=== PATIENT | male | born 1980 | race African-American/Black ===

== ENCOUNTER 2016-09-04 02:20 | Emergency (ER) | payer OTHER ==
[~2016-09-04] VITALS: Ht 185.4 cm; Wt 77.6 kg
[~2016-09-04 02:20] MED LIST: LEVETIRACETAM500 MG PO; MOTRIN600 MG PO; NAPROSYN500 MG PO; OXCARBAZEPINE150 MG PO; PREDNISONE10 MG PO; ZOFRAN ODT4 MG PO
[2016-09-04 03:10] LABS: HEMATOCRIT 40.1 % (38.0-50.0); MCH 31.7 PG (29.0-34.0); MCHC 35.2 G/DL (30.0-36.0); MCV 90.1 FL (86-99); MEAN PLAT.VOLUME 10.1 uM^3 (9.0-12.4); PLATELET COUNT 213 K/uL (156-360); RBC DIS.WIDTH-CV 12.3 % (11.8-14.6); RBC DIS.WIDTH-SD 39.8 % (39-53); RED BLOOD COUNT 4.45 M/uL (4.00-5.50); WHITE BLOOD COUNT 11.7 K/uL (4.1-10.2)
[2016-09-04 03:21] LABS: CHLORIDE 109 mEq/L (99-109); POTASSIUM 4.1 mEq/L (3.7-5.4); SODIUM 141 mEq/L (136-147)
[2016-09-04 03:23] LABS: GLUCOSE 141 mg/dL (70-99)
[2016-09-04 03:24] LABS: ANION GAP 13 MEQ/L (2-14)
[2016-09-04 03:25] LABS: TOTAL BILIRUBIN 0.7 mg/dL (0.0-1.0)
[2016-09-04 03:26] LABS: ALKALINE PHOSPHATASE 48 IU/L (3-129); SERUM ETHYL ALCOHOL < 10 mg/dL
[2016-09-04 03:27] LABS: GFR ESTIMATE (CALCULATED) > 59 mL/min/
[2016-09-04 03:28] LABS: UREA NITROGEN (BUN) 14 mg/dL (9-23)
[2016-09-04 03:30] LABS: CREATINE KINASE 229 IU/L (1-294)
[2016-09-04] MEDS ORDERED: KEPPRA500 MG PO (05:34)
[2016-09-04 13:48] VITALS: BP 125/69
== END 2016-09-04 13:30 | disposition home or self-care (01) ==
LOC: EME 02:20
PROVIDERS: Emergency Medicine
DX: G40.909 Epilepsy, unspecified, not intractable, without status epilepticus (principal); Z91.14 Patient's other noncompliance with medication regimen
CPT/HCPCS: 80053; 81003; 82550; 85027; 99281; 99284; G0480; J1953; J2060; J7030; J7050

== ENCOUNTER 2017-04-23 10:17 | Inpatient (IN) | payer SELFPAY ==
[~2017-04-23] VITALS: Ht 188 cm; Wt 83.8 kg
[~2017-04-23 10:17] MED LIST changes: +KEPPRA500 MG PO
[2017-04-23 11:21] LABS: EOSINOPHIL (%) 1.1 % (0-5); EOSINOPHIL COUNT 0.1 K/uL (0-0.3); HEMATOCRIT 40.3 % (38.0-50.0); IMMATURE GRANULOCYTE (%) 0.3 % (0.0-0.7); INSTRUMENT ABS NEUTROPHIL CT 6.4 K/uL; LYMPHOCYTE COUNT 0.6 K/uL (1.0-2.8); MCH 31.3 PG (29.0-34.0); MCHC 33.5 G/DL (30.0-36.0); MCV 93.3 FL (86-99); MEAN PLAT.VOLUME 10.1 uM^3 (9.0-12.4); MONOCYTE (%) 4.2 % (3-12); MONOCYTE COUNT 0.3 K/uL (0-0.8); NEUTROPHIL (%) 86.3 % (45-76); NEUTROPHIL COUNT 6.4 K/uL (1.8-6.4); PLATELET COUNT 179 K/uL (156-360); RBC DIS.WIDTH-CV 12.1 % (11.8-14.6); RED BLOOD COUNT 4.32 M/uL (4.00-5.50); WHITE BLOOD COUNT 7.4 K/uL (4.1-10.2)
[2017-04-23 11:29] LABS: CHLORIDE 112 mEq/L (99-109); POTASSIUM 4.9 mEq/L (3.7-5.4); SODIUM 143 mEq/L (136-147)
[2017-04-23 11:31] LABS: GLUCOSE 66 mg/dL (70-99)
[2017-04-23 11:33] LABS: ANION GAP 9 MEQ/L (2-14); TOTAL BILIRUBIN 0.3 mg/dL (0.0-1.0)
[2017-04-23 11:35] LABS: ALKALINE PHOSPHATASE 51 IU/L (3-129); GFR ESTIMATE (CALCULATED) > 59 mL/min/
[2017-04-23 11:36] LABS: UREA NITROGEN (BUN) 10 mg/dL (9-23)
[2017-04-23] MEDS ORDERED: OXCARBAZEPINE300 MG PO (13:07)
[2017-04-23 15:48] LABS: POINT-OF-CARE METER ID UU13113702
[2017-04-23 19:18] LABS: EOSINOPHIL (%) 0 % (0-5); HEMATOCRIT 39.6 % (38.0-50.0); IMMATURE GRANULOCYTE (%) 0.2 % (0.0-0.7); INSTRUMENT ABS NEUTROPHIL CT 10.2 K/uL; MCH 31.2 PG (29.0-34.0); MCHC 33.6 G/DL (30.0-36.0); MEAN PLAT.VOLUME 9.7 uM^3 (9.0-12.4); MONOCYTE (%) 6.5 % (3-12); MONOCYTE COUNT 0.8 K/uL (0-0.8); NEUTROPHIL (%) 84.7 % (45-76); NEUTROPHIL COUNT 10.2 K/uL (1.8-6.4); PLATELET COUNT 190 K/uL (156-360); RBC DIS.WIDTH-CV 12.2 % (11.8-14.6); RBC DIS.WIDTH-SD 42.3 % (39-53); RED BLOOD COUNT 4.26 M/uL (4.00-5.50)
[2017-04-23 19:32] VITALS: BP 135/71
[2017-04-23 20:49] LABS: INTER. NORMALIZED RATIO 1.1
[2017-04-23 23:22] LABS: HEMATOCRIT 37.4 % (38.0-50.0); MCV 92.3 FL (86-99)
[2017-04-23 23:25] VITALS: BP 109/55
[2017-04-24 06:42] LABS: HEMATOCRIT 36.4 % (38.0-50.0); MCH 32.1 PG (29.0-34.0); MCHC 34.6 G/DL (30.0-36.0); MCV 92.9 FL (86-99); MEAN PLAT.VOLUME 10.3 uM^3 (9.0-12.4); PLATELET COUNT 179 K/uL (156-360); RBC DIS.WIDTH-CV 12.3 % (11.8-14.6); RBC DIS.WIDTH-SD 42.1 % (39-53); RED BLOOD COUNT 3.92 M/uL (4.00-5.50); WHITE BLOOD COUNT 8.1 K/uL (4.1-10.2)
[2017-04-24 08:22] VITALS: BP 116/65
[2017-04-24] MEDS ORDERED: OXCARBAZEPINE300 MG PO (11:03)
== END 2017-04-24 11:48 | disposition home or self-care (01) | DRG 101 ==
LOC: EME 10:17 → EDOF 15:05 → ENRESERV 15:06 → 3EAST 16:24
PROVIDERS: Emergency Medicine; Hospitalist; Internal Medicine
DX: G40.409 Other generalized epilepsy and epileptic syndromes, not intractable, without status epilepticus (principal); F17.200 Nicotine dependence, unspecified, uncomplicated; K92.0 Hematemesis; F12.90 Cannabis use, unspecified, uncomplicated; R53.1 Weakness; E16.2 Hypoglycemia, unspecified; R11.0 Nausea; Z82.0 Family history of epilepsy and other diseases of the nervous system; Z79.899 Other long term (current) drug therapy; Z88.0 Allergy status to penicillin
CPT/HCPCS: 70450; 80053; 82948; 85014; 85018; 85025; 85025 91; 85027; 85610; 85730; 86850; 86900; 86901; 94799; 99281; 99285; C9113; J1953; J2060; J2270; J2765; J7030; J7050

== ENCOUNTER 2017-06-27 10:16 | Inpatient (IN) | payer BC ==
[~2017-06-27] VITALS: Ht 182.9 cm; Wt 84.8 kg
[~2017-06-27 10:16] MED LIST changes: +OXCARBAZEPINE300 MG PO
[2017-06-27 15:55] LABS: POINT-OF-CARE METER ID UU14100415
[2017-06-27 16:04] LABS: CHLORIDE 109 mEq/L (99-109); POTASSIUM 4.2 mEq/L (3.7-5.4); SODIUM 140 mEq/L (136-147)
[2017-06-27 16:05] LABS: GLUCOSE 85 mg/dL (70-99)
[2017-06-27 16:07] LABS: ANION GAP 10 MEQ/L (2-14)
[2017-06-27 16:09] LABS: GFR ESTIMATE (CALCULATED) > 59 mL/min/ (58.99-99999)
[2017-06-27 16:10] LABS: UREA NITROGEN (BUN) 12 mg/dL (9-23)
[2017-06-27] MEDS ORDERED: APTIOM600 MG PO (16:52)
[2017-06-27] MEDS ORDERED: APTIOM400 MG PO (16:52)
[2017-06-27 18:30] VITALS: BP 130/65
== END 2017-06-27 18:20 | disposition left against medical advice (07) | DRG 101 ==
LOC: EME 10:16 → EDOF 16:25 → ENRESERV 17:52 → EDOF 18:20 → ENRESERV 18:47 → CANRESERV 18:47
PROVIDERS: Physician Assistant
DX: G40.89 Other seizures (principal); W22.09XA Striking against other stationary object, initial encounter; F17.200 Nicotine dependence, unspecified, uncomplicated; Z79.899 Other long term (current) drug therapy; Z88.0 Allergy status to penicillin
CPT/HCPCS: 70450; 80048; 80156; 82948; J2060

== ENCOUNTER 2018-02-03 12:58 | Inpatient (IN) | payer OTHER ==
[~2018-02-03] VITALS: Ht 182.9 cm; Wt 85.5 kg
[~2018-02-03 12:58] MED LIST changes: +APTIOM400 MG PO; +APTIOM600 MG PO
[2018-02-03 13:46] LABS: HEMATOCRIT 44.4 % (38.0-50.0); HEMOGLOBIN 15.9 G/DL (12.5-16.6); MCH 32.7 PG (29.0-34.0); MCHC 35.8 G/DL (30.0-36.0); MCV 91.4 FL (86-99); PLATELET COUNT 176 K/uL (156-360); RBC DIS.WIDTH-CV 11.7 % (11.8-14.6); RBC DIS.WIDTH-SD 39.3 % (39-53); RED BLOOD COUNT 4.86 M/uL (4.00-5.50); WHITE BLOOD COUNT 11.9 K/uL (4.1-10.2)
[2018-02-03 13:49] LABS: APPEARANCE CLEAR ((CLEAR)); BILIRUBIN NEGATIVE; BLOOD MODERATE; COLOR STRAW ((YELLOW)); GLUCOSE (STRIP) >=500; KETONES NEGATIVE; LEUKOCYTES NEGATIVE; NITRITE NEGATIVE; PROTEIN (STRIP) 100; SPECIFIC GRAVITY 1.012 (1.000-1.030); UROBILINOGEN 0.2 MG/DL (0.2-1.0)
[2018-02-03 13:55] LABS: CHLORIDE 108 mEq/L (99-109); POTASSIUM 4.5 mEq/L (3.7-5.4); SODIUM 138 mEq/L (136-147)
[2018-02-03 13:57] LABS: GLUCOSE 206 mg/dL (70-99)
[2018-02-03 14:01] LABS: CREATININE 1.2 mg/dL (0.6-1.3); GFR ESTIMATE (CALCULATED) > 59 mL/min/ (58.99-99999); UREA NITROGEN (BUN) 11 mg/dL (9-23)
[2018-02-03 14:04] LABS: BACTERIA NONE SEEN /HPF; EPITHELIAL CELLS NONE SEEN /HPF; HYALINE CASTS 0-5 /LPF; MUCUS TRACE /LPF; RED BLOOD CELLS 0-5 /HPF (0-5); UCUL ADDED? NO; WHITE BLOOD CELLS 0-5 /HPF (0-5)
[2018-02-03 14:59] LABS: VALPROIC ACID (DEPAKOTE) < 10.0 MCG/ML (50-100)
[2018-02-03] MEDS ORDERED: DEPAKOTE500 MG PO (16:15)
[2018-02-03 20:27] VITALS: BP 107/68
[2018-02-03 23:47] VITALS: BP 122/63
[2018-02-04 03:31] VITALS: BP 117/58
[2018-02-04 07:32] VITALS: BP 107/59
[2018-02-04 11:20] VITALS: BP 108/53
[2018-02-04 15:32] VITALS: BP 131/61
[2018-02-04 19:34] VITALS: BP 130/68
[2018-02-04 23:25] VITALS: BP 130/61
[2018-02-05 07:30] VITALS: BP 1220/55
== END 2018-02-05 12:05 | disposition home or self-care (01) | DRG 101 ==
LOC: EME 12:58 → EDOF 15:30 → 5EAST 15:30 → ENRESERV 15:51 → 5EAST 19:03
DX: G40.401 Other generalized epilepsy and epileptic syndromes, not intractable, with status epilepticus (principal); F12.90 Cannabis use, unspecified, uncomplicated; F17.200 Nicotine dependence, unspecified, uncomplicated; R11.2 Nausea with vomiting, unspecified; Z82.0 Family history of epilepsy and other diseases of the nervous system
CPT/HCPCS: 80048; 80156; 80164; 80184; 80185; 81003; 85027; 94799; 99281; 99285; J2060; J7030